=== PATIENT | female | born 1950 | race Caucasian/White ===

== ENCOUNTER 2021-03-15 19:05 | Inpatient (IN) | payer MEDICARE, OTHER ==
[~2021-03-15] VITALS: Ht 165.1 cm; Wt 54.4 kg
[2021-03-15 19:34] LABS: BASOPHILS ABSOLUTE AUTO 0.03 K/mm3 (0.00-0.23); BASOPHILS PERCENT AUTO 0 % (0-2); EOSINOPHILS ABSOLUTE AUTO 0.02 K/mm3 (0.00-0.68); EOSINOPHILS PERCENT AUTO 0 % (0-6); Hematocrit 38.1 % (33.0-51.0); Hemoglobin 13.8 g/dL (11.5-16.0); IMMATURE GRAN ABSOLUTE AUTO 0.02 K/mm3 (0.00-0.10); IMMATURE GRAN PERCENT AUTO 0 % (0-1); LYMPHOCYTES ABSOLUTE AUTO 0.91 K/mm3 (0.84-5.20); LYMPHOCYTES PERCENT AUTO 14 % (21-46); MONOCYTES PERCENT AUTO 13 % (4-13); Mean Corpuscular HGB 32.9 pg (26.0-34.0); Mean Corpuscular HGB Conc 36.2 g/dL (31.5-36.5); Mean Corpuscular Volume 91 fL (80-100); Mean Platelet Volume 9.6 fL (9.1-12.4); NEUTROPHILS ABSOLUTE AUTO 4.85 K/mm3 (1.96-9.15); NEUTROPHILS PERCENT AUTO 72 % (41-73); Platelet Count 217 K/mm3 (150-400); RDW Coefficient Variation 11.5 % (11.7-14.2); RDW Standard Deviation 38.5 fL (35.1-46.3); White Blood Cell Count 6.73 K/mm3 (4.00-11.30)
[2021-03-15 20:16] LABS: Alanine Aminotransfer (ALT/SGP 21 U/L (12-78); Albumin, Blood 4.2 g/dL (3.4-5.0); Albumin/Globulin Ratio 1.2 (0.8-1.8); Alk Phos 47 U/L (50-136); Anion Gap 9 mmol/L (6-16); Aspartate Aminotrans (AST/SGOT 41 U/L (12-37); Bilirubin, Total 0.4 mg/dL (0.1-1.0); Blood Urea Nitrogen 6 mg/dL (8-24); Bun/Creatinine Ratio 11.1 (12.0-20.0); CO2, Blood 30 mmol/L (21-32); Calcium, Blood 9.9 mg/dL (8.5-10.1); Chloride, Blood 83 mmol/L (98-108); Creatinine, Blood 0.54 mg/dL (0.40-1.00); Globulin, Blood 3.4 g/dL (2.2-4.0); Glomerular Filtration Rate >60 (60-); Glucose, Blood 90 mg/dL (70-99); Potassium, Blood 3.1 mmol/L (3.5-5.5); Sodium, Blood 122 mmol/L (136-145); Total Protein, Blood 7.6 g/dL (6.4-8.2)
[2021-03-15] MEDS ORDERED: OXYB5 PO (21:23)
[2021-03-15] MEDS ORDERED: ZESTRIL40 M1 PO (21:23)
[2021-03-15] MEDS ORDERED: Synthroid200 MCG PO (21:23)
[2021-03-15] MEDS ORDERED: MOTRIN IB200 MG PO (21:24)
[2021-03-15 22:21] LABS: Troponin I 0.046 ng/mL (0.000-0.040)
[2021-03-15 23:14] LABS: Creatine Kinase MB Index 1.6 (0.0-4.0)
[2021-03-15 23:40] LABS: Thyroid Stimulating Hormone 1.65 uIU/mL (0.360-4.800)
[2021-03-16] MEDS ORDERED: MELATONIN5 M1 PO (01:24)
[2021-03-16 05:23] LABS: BASOPHILS ABSOLUTE AUTO 0.06 K/mm3 (0.00-0.23); BASOPHILS PERCENT AUTO 1 % (0-2); EOSINOPHILS ABSOLUTE AUTO 0.04 K/mm3 (0.00-0.68); EOSINOPHILS PERCENT AUTO 1 % (0-6); Hematocrit 31.8 % (33.0-51.0); Hemoglobin 11.6 g/dL (11.5-16.0); IMMATURE GRAN ABSOLUTE AUTO 0.02 K/mm3 (0.00-0.10); IMMATURE GRAN PERCENT AUTO 0 % (0-1); LYMPHOCYTES ABSOLUTE AUTO 1.41 K/mm3 (0.84-5.20); LYMPHOCYTES PERCENT AUTO 19 % (21-46); MONOCYTES ABSOLUTE AUTO 1.01 K/mm3 (0.16-1.47); MONOCYTES PERCENT AUTO 13 % (4-13); Mean Corpuscular HGB 33.2 pg (26.0-34.0); Mean Corpuscular HGB Conc 36.5 g/dL (31.5-36.5); Mean Corpuscular Volume 91 fL (80-100); Mean Platelet Volume 10.1 fL (9.1-12.4); NEUTROPHILS ABSOLUTE AUTO 4.99 K/mm3 (1.96-9.15); NEUTROPHILS PERCENT AUTO 66 % (41-73); Platelet Count 176 K/mm3 (150-400); RDW Coefficient Variation 11.6 % (11.7-14.2); Red Blood Cell Count 3.49 M/mm3 (3.80-5.20); White Blood Cell Count 7.53 K/mm3 (4.00-11.30)
[2021-03-16 05:41] LABS: Magnesium, Blood 2.2 mg/dL (1.6-2.4); Troponin I 0.075 ng/mL (0.000-0.040)
[2021-03-16 05:49] LABS: Anion Gap 6 mmol/L (6-16); Blood Urea Nitrogen 5 mg/dL (8-24); Bun/Creatinine Ratio 9.1 (12.0-20.0); CO2, Blood 31 mmol/L (21-32); Calcium, Blood 8.1 mg/dL (8.5-10.1); Chloride, Blood 87 mmol/L (98-108); Creatinine, Blood 0.55 mg/dL (0.40-1.00); Glomerular Filtration Rate >60 (60-); Glucose, Blood 140 mg/dL (70-99); Potassium, Blood 2.4 mmol/L (3.5-5.5); Sodium, Blood 124 mmol/L (136-145)
--- NOTE | 2021-03-16 06:00 | NUR ---
SHIFT SUMMARY PT ALERT AND ORIENT X4. VSS. ADMITTED FROM ED FOR ELEVATED TROPONIN. 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 REPORT FOR YENIFER BRADLEY IN ED REPORTS PT HAD A SYNCOPAL EPISODE ON 03/14/21 AND HIT HER HEAD. PT STATES SHE HAS NOT FELT HERSELF SINCE RECIEVING SECOND MODERNA COVID VACCINE ON 02/18/21. HTN TREATED WITH HYDRALAZINE PER EMAR. PT HAS WEAKNESS THROUGHOUT BODY. SHE RESTED WELL T/O THE NIGHT AFTER ADMISSION. PT HAS A BLISTER ON HER LEFT THUMB SHE REPORTS BURN HER HAND ON ONE WEEK AGO. PT DENIES NAUSEA OR PAIN AT THIS TIME. BANNANA BAG INFUSING AND LR. WILL CONTINUE TO MONITOR UNTIL CHANGE OF SHIFT.
[2021-03-16 10:39] LABS: International Normalized Ratio 1.02
--- NOTE | 2021-03-16 11:19 | NUR ---
PT ALERT AND ORIENTED X4, VERY SLEEPT THIS AM AND AFTERNOON. ROOM AIR SATING ABOVE 94%. TELE SHOWING SINUS WITH HR 70-80'S. DENIES CHEST PAIN/PRESSURE. VITAL SIGNS STABLE. COMPLAINS OF NAUSEA ONLY WHEN SHE EATS. ABLE TO TAKE SIPS OF WATER WITH MEDICATIONS. DENIES ANY OTHER PAINS. FLUIDS AND HEPARIN INFUSING. BLISTER NOTED ON LEFT THUMB. NEURO WNL. ISTRATE IN TO SEE PATIENT THIS AM. NO NEW ORDERS AT THIS TIME. WILL CONTINUE TO MONITOR.
[2021-03-16 14:41] LABS: Thyroid Stimulating Hormone 1.42 uIU/mL (0.360-4.800)
--- NOTE | 2021-03-16 18:33 | NUR ---
SHIFT SUMMARY: NO ACUTE CHANGES, VITAL SIGNS REMAIN STABLE. TELE SHOWING SINUS WITH HR 70-80'S. PT STILL SLEEPY THIS EVENING. DENIES NAUSEA OR ANY PAIN. HEPARIN DRIP AND LR INFUSING. PT ABLE TO EAT LUNCH AND DINNER. SPOKE WITH ON PHONE WHO WAS CONCERNED WITH THE FACT SHE HAD FALLEN AT HOME AND WAS WORRIED ABOUT THE POSSIBILITY OF CONCUSSION. HE ALSO REPORTED PT HAS NOT BEEN SLEEPING WELL AT HOME. NEURO CHECKS WNL. CIWA SCORES 1-2, PT DENIES ANY ETOH WITHDRAWL SYMPTOMS. WILL CONTINUE TO MONITOR AND REPORT OFF.
[2021-03-17 01:11] LABS: Hematocrit 33.6 % (33.0-51.0); Hemoglobin 12.3 g/dL (11.5-16.0); Mean Corpuscular HGB 33.8 pg (26.0-34.0); Mean Corpuscular HGB Conc 36.6 g/dL (31.5-36.5); Mean Corpuscular Volume 92 fL (80-100); Mean Platelet Volume 8.9 fL (9.1-12.4); Platelet Count 227 K/mm3 (150-400); RDW Coefficient Variation 11.8 % (11.7-14.2); RDW Standard Deviation 39.8 fL (35.1-46.3); Red Blood Cell Count 3.64 M/mm3 (3.80-5.20); White Blood Cell Count 6.07 K/mm3 (4.00-11.30)
[2021-03-17 01:32] LABS: Anion Gap 5 mmol/L (6-16); Blood Urea Nitrogen 3 mg/dL (8-24); Bun/Creatinine Ratio 6.1 (12.0-20.0); CO2, Blood 29 mmol/L (21-32); Calcium, Blood 8.1 mg/dL (8.5-10.1); Chloride, Blood 88 mmol/L (98-108); Creatinine, Blood 0.49 mg/dL (0.40-1.00); Glomerular Filtration Rate >60 (60-); Glucose, Blood 150 mg/dL (70-99); Magnesium, Blood 2.2 mg/dL (1.6-2.4); Phosphorus, Blood 2.3 mg/dL (2.5-4.9); Potassium, Blood 2.9 mmol/L (3.5-5.5); Sodium, Blood 122 mmol/L (136-145); Troponin I 0.042 ng/mL (0.000-0.040)
--- NOTE | 2021-03-17 05:08 | NUR ---
SHIFT SUMMARY AOX4. VSS. PATIENT SLEPT FOR MAJORITY OF SHIFT ONLY WAKING FOR ASSESSMENT AND MEDICATIONS. PATIENT REMAINED NPO AFTER MIDNIGHT FOR STRESS TEST THIS AM. HOSPITALIST NOTIFIED OF CHANGE IN ELECTROLYTES AND K-PHOS INITIATED PER EMAR. PATIENT DENIES CHEST PAIN OR SOB. CIWA SCORES NEGATIVE. NO NAUSEA REPORTED BY PATIENT T/O SHIFT. WILL CONTINUE TO MONITOR UNTIL END OF SHIFT.
--- NOTE | 2021-03-17 09:25 | NUR ---
PT ALERT AND ORIENTED X4. VERY SLEEPY BUT ABLE TO WAKE FOR CARES AND ANSWERING ALL QUESTIONS APPROPRIATLY. ON ROOM AIR SATING ABOVE 94%. TELE SHOWING SINUS WITH HR IN THE 70'S. DENIES CHEST PAIN/PRESSURE AT THIS TIME. DENIES NAUSEA AND ANY OTHER PAINS. LR AND HEPARIN INFUSING PER EMAR. POTASSIUM PHOSPHATE INFUSED EARLIER THIS AM. CIWA SCORING 0-1. NPO AT THIS TIME FOR CARDIAC STRESS TEST TODAY. VITAL SIGNS STABLE. CALL LIGHT IN REACH. WILL CONTINUE TO MONITOR.
[2021-03-17] MEDS ORDERED: ACET325 PO (11:18)
[2021-03-17] MEDS ORDERED: Aspir 8181 MG PO (11:19)
[2021-03-17] MEDS ORDERED: ATOR40TA PO (11:20)
[2021-03-17] MEDS ORDERED: FAMO20 PO (11:21)
[2021-03-17] MEDS ORDERED: NITR.4SL SL (11:22)
[2021-03-17] MEDS ORDERED: Nicoderm Cq1 EAC1 TOP (11:22)
[2021-03-17] MEDS ORDERED: ONDA4ODT MM (11:23)
--- NOTE | 2021-03-17 11:34 | NUR ---
PT TAKEN VIA WHEELCHAIR FOR STRESS TEST
--- NOTE | 2021-03-17 18:14 | NUR ---
PT REMAINS STABLE. NO ACUTE CHANGES. SEE PREVIOUS NOTE. VITAL SIGNS STABLE. MEDICATED ONCE THIS SHIFT FOR HIGH BP. CARDIAC STRESS TEST COMPLETED. MEDICAL STATUS WITH NO TELE. PT TOLERATING CARDIAC DIET WELL. DENIES NAUSEA. CRISTINA PT'S FRIEND CALLED AND UPDATED ON STATUS. WILL CONTINUE TO MONITOR AND REPORT OFF.
--- NOTE | 2021-03-18 04:53 | NUR ---
SHIFT SUMMARY AOX4. BLOOD PRESSURE ELEVATED, MEDICATED PER EMAR. PATIENT REQUESTED TO GO FOR A WALK BUT DUE TO PATIENT'S WEAKNESS OPTED TO WAIT. PATIENT UP TO BATHROOM WITH SBA. SHE RESTED WELL T/O THE NIGHT. NO ACUTE CHANGES. WILL CONTINUE TO MONITOR UNTIL CHANGE OF SHIFT.
--- NOTE | 2021-03-18 06:43 | NUR ---
student rn THIS RN HAS REVIEWED AND AGREES WITH STUDENT RN'S ASSESMENT AND CHARTING.
[2021-03-18] MEDS ORDERED: POTCHL20ER PO (08:08)
--- NOTE | 2021-03-18 10:36 | NUR ---
PT DISCHARGED TO HOME WITH PT'S FRIEND, CRISTINA, AFTER RECEIVING DISCHARGE EDUCATION AND MED LIST. PT TRANSFERRED VIA WHEELCHAIR WITH NO CARDIAC MONITORING, O2, OR INFUSIONS. PT REPORTS NO ADDITIONAL CONCERNS AT THIS TIME.
== END 2021-03-18 11:04 | disposition home or self-care (01) | DRG 281 ==
LOC: ER 19:05 → PCU 19:06
PROVIDERS: Emergency Medicine; Family Medicine; Nurse Practitioner Acute Care; Pharmacist; Physician Assistant; ADMIT Internal Medicine
PROC: HZ2ZZZZ Detoxification Services for Substance Abuse Treatment (ICD-10-PCS; principal; 2021-03-16)
DX: I16.0 Hypertensive urgency (principal); I21.A1 Myocardial infarction type 2; I42.6 Alcoholic cardiomyopathy; I10 Essential (primary) hypertension; F10.10 Alcohol abuse, uncomplicated; E87.6 Hypokalemia; E86.0 Dehydration; E03.9 Hypothyroidism, unspecified; Z87.891 Personal history of nicotine dependence; Z79.899 Other long term (current) drug therapy
CPT/HCPCS: 36415; 71045; 78452; 80048; 80053; 82550; 82553; 83690; 83735; 84100; 84132; 84443; 84484; 85025; 85027; 85610; 85730; 86141; 93005; 93010; 93017; 93306; 94762; 96366; 96367; 96372; 96374; 96375; 99285-25; A9270; A9500; G0378; J0360; J0706; J1644; J1650; J2405; J2785; J3411; J3475; J3480; J7030; J7042; J7060; J7120